=== PATIENT | male | born 1985 | race Caucasian/White ===

== ENCOUNTER 2016-12-04 21:33 | Emergency (ER) | payer SELFPAY ==
[~2016-12-04] VITALS: Ht 172.7 cm; Wt 83.1 kg
[2016-12-04 21:33] VITALS: Ht 172.7 cm; Wt 83.1 kg
[2016-12-04] MEDS ORDERED: LABETALOL 100mg/20ml INJECTION IV ONE (21:45)
--- NOTE | 2016-12-04 21:46 | ERPDOC ---
Departure Disposition Decision Date: Dec 05, 2016 Disposition Decision Time: 00:02 Disposition: 01 DISCHARGED HOME, SELF-CARE Impression Impression Impression: Primary Impression: Hypertension Hypertension type: essential hypertension Qualified Codes: I10 - Essential ( primary) hypertension Additional Impressions: Ataxia Volume depletion Severity: Moderate Condition: Improved Seen By: Physician only Patient Instructions: Hypertension (ED) Problems/Meds/Labs Reviewed?: Yes Medications reviewed and manag: Yes Additional Instructions: Take your routine medications as prescribed Call [facility] in the morning to make appointment for follow-up, and to establish care Follow up care ordered?: Yes Mental Status: Alert HPI - General Medical General Stated Complaint: BALANCE ISSUES Time Seen by Provider: 21:37 Source: patient, police, EMS Exam Limitations: no limitations HPI - General Medical Initial Comments Pt was found ataxic stumbling in the local park by a passerby, who notified 911 about the patient. Initially the patient was met by police, he was alert, oriented, but was having standing. EMS was called for evaluation, since the patient stated that this is fairly routine for him when his blood pressure gets high. Patient was found to have blood pressure 140/90, he was alert, did not appear to be intoxicated, was having difficulty with standing and ambulation. Patient currently states he feels woozy, and this is fairly typical when his blood pressure gets a little high. Patient takes one hydrochlorothiazide tablet daily, has no local physician, and recently moved from [place] to [place] to be with his family. Patient does have a positive past medical history for depression with anxiety and PTSD Patient denies alcohol, recreational drugs, or any history of CVA/TN. Patient also denies any headache, nausea, vomiting, chills or sweats, diarrhea, or trauma. Occurred At: home Onset: Gradual Duration: 6-12 hrs Severity: moderate Associated Symptoms: DENIES: chest pain, cough, diaphoresis, fever/chills, headaches, loss of appetite, malaise, nausea/vomiting, rash, seizure, shortness of breath, syncope, weakness Hx of Similar Symptoms: Yes Allergies: Coded Allergies: Latex, Natural Rubber (Verified Allergy, Mild, HIVES, 12/04/16) Past History Past Medical History Metabolic: hypertension Psychological: anxiety, depression, other (PTSD) PMH Comments PTSD Review of Systems Constitutional Constitutional: dizziness, DENIES: anorexia, appetite decrease, appetite increase, chills, fatigue, fever, night sweats, syncope, weakness ENMT Ears: DENIES: pain Hearing: DENIES: hearing loss, tinnitus Balance: DENIES: vertigo Mouth/Throat: DENIES: change in swallowing, change in voice, hoarsness, painful swallowing, sore throat Cardiovascular Cardiac: DENIES: chest pain, dyspnea on exertion Rhythm/Rate: DENIES: irregular beat, palpitations, tachycardia Vascular: DENIES: pedal edema Pulmonary Respiratory: DENIES: cough, dyspnea, pleuritic chest pain GI Upper Abdomen: DENIES: dysphagia, heartburn/indigestion, nausea, pain, vomiting Lower Abdomen: DENIES: blood in stool, constipation, diarrhea, pain General: DENIES: burning, dysuria, frequency, pain, urgency Musculoskeletal General: DENIES: cramps, joint pain, joint swelling, pain, weakness Integumentary Skin: DENIES: rash, sores Neurological General: DENIES: headache, numbness, tingling, vertigo, weakness Psychiatric Psychiatric: DENIES: anxiety, depression, nervousness Physical Exam General General Nourishment: well nourished, well developed, appears stated age General Body Habitus: disheveled Vitals and Pain First Documented Vital Signs Date Time Temp Pulse Resp B/P Pulse Ox O2 Delivery O2 Flow Rate FiO2 12/04/16 21:33 97.9 102 16 141/86 100 Room Air Weight: Kilograms: Height (feet): Height (inches): Triage Pain Scale: RN VS reviewed by Provider: Yes Normal Exams: Head: Normocephalic w/o trauma Eyes: Pupils are PERRLA w/ EOMI, No scleral icterus, irritation, or foreign bodies noted ENMT: No facial trauma, nasal exudates, pharyngeal erythema, or exudates are noted Neck: Full range of motion, without adenopathy, JVD, bruits or thyromegaly Chest/Resp: Clear all godfrey, with good airflow, and symmetry bilaterally CV: Regular rate and rhythm, without murmur or gallop, Pulses 2+ all extremities, capillary refill, <2 seconds all ext., no pedal edema noted Abdomen: Bowel sounds positive, soft, non-tender, non-distended, no hepatosplenomegaly, masses or bruits noted Lymphatic: No lymphadenopathy, or lymphedema noted Musculoskeletal: No tenderness, or deformity noted, good range of motion, all extremities Integumentary: No rashes, hives, or bruising noted, hair and nails, without abnormality Psychiatric: Patient exhibits, appropriate attention, emotion and affect Neurologic (brief) Neurological Brief: FOUND: CN w/o gross def to obs, ataxia, motor-no gross deficits, sensory-no gross deficits, NOT FOUND: gait w/o gross def to obs Comments Initially patient was lightheaded with moderate ataxia while standing. Over the course of 15-20 minutes, the patient's blood pressure improved, his wooziness improved, and ataxia was much improved as well Progress Results/Orders Orders Procedure Category Date Status Time Iv Lock (Ed Only) EDM 12/04/16 Transmitted 21:37 Cbc W/Auto LAB 12/04/16 Complete Diff-Reflex Manual Cmp - Comprehensive LAB 12/04/16 Complete Metabolic Drug Screen LAB 12/04/16 Logged Urine-Test At [facility] [place] 21:37 Ethanol LAB 12/04/16 Complete EKG EKG 12/04/16 Taken Labetalol (Trandate) PHA 12/04/16 Complete 21:45 Normal Saline (Normal PHA 12/04/16 Complete Saline Iv) 22:45 Lab Results Laboratory Tests Test 12/04/16 21:46 White Blood Count 6.3T/MM3 Red Blood Count 4.72M/MM3 Hemoglobin 14.6GM/DL Hematocrit 42.4% Mean Corpuscular Volume 89.8UM3 Mean Corpuscular Hemoglobin 30.9UUG Mean Corpuscular Hemoglobin Concent 34.4GM/DL RDW Standard Deviation 43.5FL Platelet Count 205T/MM3 Mean Platelet Volume 11.0UM3 Immature Granulocyte % (Auto) 0.3% Neutrophils (%) (Auto) 64.8% Lymphocytes (%) (Auto) 22.8% Monocytes (%) (Auto) 9.3% Eosinophils (%) (Auto) 2.5% Basophils (%) (Auto) 0.3% Absolute Immature Granulocyte (auto 0.02T/MM3 Absolute Neutrophils (auto) 4.1T/MM3 Absolute Lymphocytes (auto) 1.4T/MM3 Absolute Monocytes (auto) 0.6T/MM3 Absolute Eosinophils (auto) 0.2T/MM3 Absolute Basophils (auto) 0.0T/MM3 Turbidity < 20 Sodium Level 145MEQ/L Potassium Level 3.3MEQ/L Chloride Level 105MEQ/L Carbon Dioxide Level 25MEQ/L Anion Gap 15MEQ/L Blood Urea Nitrogen 20.0MG/DL Creatinine 0.8MG/DL Glomerular Filtration Rate Calc 113 BUN/Creatinine Ratio 25RATIO Glucose Level 103MG/DL Calculated Osmolality 282MOSM/KG Calcium Level 9.5MG/DL Total Bilirubin 0.90MG/DL Icterus Index < 2 Aspartate Amino Transf (AST/SGOT) 60U/L Alanine Aminotransferase (ALT/SGPT) 71U/L Alkaline Phosphatase 81U/L Total Protein 7.8G/DL Albumin 4.5G/DL Globulin 3.3G/DL Albumin/Globulin Ratio 1.4RATIO Chemistry Specimen Hemolysis < 15 Alcohol, Quantitative <10MG/DL Medications Current ED Medications Labetalol HCl 20 mg 20 mg O ONCE IV ; Start 12/04/16 at 21:45; Stop 12/04/16 at 21:46; Status DC Sodium Chloride (Normal Saline IV) 1,000 ml @ 0 mls/hr Q0M ONCE IV ; Start at 22:45; Stop 12/04/16 at 22:46; Status DC Progress Progress I was unable to verify any of the patient's past medical history from hospitals around [facility] Patient's blood pressure normalized without medications, and symptoms resolved CBC - n CMP - normal electrolyte abnormalities only, consistent with mild dehydration EtOH - negative EKG shows normal sinus rhythm with early repolarization in the anterior leads only. No ectopy, no ischemia, no STEMI Patient was unable to produce urine after one hour, bladder scanner shows less than 150 cc and bladder, patient given 1 L normal saline IV fluid bolus UDS - Cancelled, pt was unable to urinate and declined straight cath with 180cc urine in the bladder after IVF - Pt ambulating normally after rest and fluids with normalization of his blood pressure. CARLOS PAYAN MD Dec 04, 2016 21:46
[2016-12-04 21:53] LABS: BASOPHILS % (AUTO) 0.3 % (0-2); EOSINOPHILS # (AUTO) 0.2 T/MM3 (0-0.5); EOSINOPHILS % (AUTO) 2.5 % (0-4); HCT - HEMATOCRIT 42.4 % (41-53); HGB - HEMOGLOBIN 14.6 GM/DL (13.5-17.5); IMMATURE GRANULOCYTE # (AUTO) 0.02 T/MM3 (0.00-0.03); IMMATURE GRANULOCYTE % (AUTO) 0.3 % (0.0-0.5); LYMPHOCYTES # (AUTO) 1.4 T/MM3 (1-4.8); LYMPHOCYTES % (AUTO) 22.8 % (23-45); MEAN CORPUSCULAR HGB 30.9 UUG (26-34); MEAN CORPUSCULAR HGB CONC(MCHC 34.4 GM/DL (31-37); MEAN CORPUSCULAR VOLUME 89.8 UM3 (80-100); MONOCYTES # (AUTO) 0.6 T/MM3 (0-0.8); MONOCYTES % (AUTO) 9.3 % (0-9.0); NEUTROPHILS #(AUTO)-ABSOLUTE 4.1 T/MM3 (1.8-7.7); NEUTROPHILS % (AUTO) 64.8 % (33-66); RED BLOOD COUNT 4.72 M/MM3 (4.50-5.90); WBC - WHITE BLOOD COUNT 6.3 T/MM3 (4.5-11.0)
--- NOTE | 2016-12-04 22:00 | NUR ---
STATUS PT REPORTS DIZZINESS HAS DECREASED. PT DENIES PAIN. PT IS GIVEN A GLASS OF WATER
[2016-12-04 22:02] LABS: ALBUMIN 4.5 G/DL (3.5-5.0); ALBUMIN/GLOBULIN RATIO 1.4 RATIO (1.1-2.2); ALKALINE PHOSPHATASE 81 U/L (38-126); ALT (SGPT) 71 U/L (21-72); ANION GAP 15 MEQ/L (5-15); AST (SGOT) 60 U/L (17-59); BUN/CREATININE RATIO 25 RATIO (6-26); CALCIUM 9.5 MG/DL (8.4-10.2); CHLORIDE 105 MEQ/L (98-107); CO2 - CARBON DIOXIDE 25 MEQ/L (22-30); CREATININE 0.8 MG/DL (0.8-1.5); ETHANOL <10 MG/DL (<10); GLOMERULAR FILTRATION RATE 113; GLUCOSE 103 MG/DL (75-110); POTASSIUM 3.3 MEQ/L (3.6-5); SODIUM 145 MEQ/L (134-144); TOTAL PROTEIN 7.8 G/DL (6.3-8.2)
[2016-12-04] MEDS ORDERED: HYDR12.530 PO (22:08)
--- NOTE | 2016-12-04 22:30 | NUR ---
STATUS PT ATTEMPTED TO URINATE, UNSUCCESSFUL
--- NOTE | 2016-12-04 22:40 | NUR ---
[id number]
[2016-12-04] MEDS ORDERED: NORMAL SALINE 1,000 ML IV ONE (22:45)
--- NOTE | 2016-12-04 23:45 | NUR ---
STATUS PT ATTEMPTS TO URINATE, UNSUCCESSFUL
--- NOTE | 2016-12-04 23:50 | NUR ---
BLADDER [id number]
--- NOTE | 2016-12-05 00:11 | NUR ---
UDS NET REPAIRER HERE TO HAVE PT URINATE AND COLLECT UDS/UA. PT ABLE TO URINATE THIS TIME.
[2016-12-05 00:23] VITALS: BP 137/86; PULSE 83; RESP 27; TEMP 97.9; O2SAT 100
--- NOTE | 2016-12-05 00:23 | NUR ---
DEPART PT IS GIVEN DISMISSAL INSTRUCTIONS WITH VERBAL UNDERSTANDING. PT LEAVES AMBUALTORY WITH SISTER TO ED REGISTRATION DESK
[2016-12-05 00:33] LABS: AMPHETAMINE SCREEN,URINE NEGATIVE; BARBITURATE SCREEN,URINE NEGATIVE; BENZODIAZEPINES SCREEN,URINE NEGATIVE; CANNABINOID SCREEN,URINE NEGATIVE; COCAINE SCREEN,URINE NEGATIVE; METHADONE SCREEN, URINE NEGATIVE; METHAMPHETAMINE SCREEN, URINE NEGATIVE; OPIATE SCREEN,URINE NEGATIVE; PHENCYCLIDINE SCREEN,URINE NEGATIVE; TRICYCLIC ANTIDEPRESSANT,URINE NEGATIVE
== END 2016-12-05 00:23 | disposition home or self-care (01) ==
LOC: ED 21:33
DX: R27.0 Ataxia, unspecified (principal); I10 Essential (primary) hypertension; E86.9 Volume depletion, unspecified
CPT/HCPCS: 80053; 80306; 80307; 85025; 93005